=== PATIENT | female | born 1985 | race Caucasian/White ===

== ENCOUNTER 2017-11-28 08:10 | Emergency (ER) | payer OTHER ==
[~2017-11-28] VITALS: Ht 180.3 cm; Wt 66.6 kg
[2017-11-28 08:55] LABS: HEMATOCRIT 36.7 % (36.0-46.0); MCH 33.1 PG (29.0-34.0); MCHC 35.4 G/DL (30.0-36.0); MCV 93.4 FL (83-99); PLATELET COUNT 206 K/uL (156-360); RBC DIS.WIDTH-CV 11.8 % (11.8-14.6); RBC DIS.WIDTH-SD 40.8 % (39-53); RED BLOOD COUNT 3.93 M/uL (3.80-5.20); WHITE BLOOD COUNT 4.9 K/uL (4.1-10.2)
[2017-11-28 09:06] LABS: ALBUMIN 4.3 g/dL (3.2-4.8); CHLORIDE 109 mEq/L (99-109); POTASSIUM 4.1 mEq/L (3.7-5.4)
[2017-11-28 09:07] LABS: AMYLASE 51 IU/L (1-118); SODIUM 141 mEq/L (136-147)
[2017-11-28 09:09] LABS: GLUCOSE 94 mg/dL (70-99); TOTAL PROTEIN 6.7 g/dL (6.4-8.3)
[2017-11-28 09:11] LABS: TOTAL BILIRUBIN 0.3 mg/dL (0.0-1.0)
[2017-11-28 09:12] LABS: ALKALINE PHOSPHATASE 74 IU/L (3-129); CREATININE 0.8 mg/dL (0.6-1.3); GFR ESTIMATE (CALCULATED) > 59 mL/min/
[2017-11-28 09:14] LABS: AST (GOT) 19 IU/L (2-34); UREA NITROGEN (BUN) 14 mg/dL (9-23)
[2017-11-28 09:15] LABS: ALT (GPT) 16 IU/L (3-49)
[2017-11-28 09:16] LABS: LIPASE 23 U/L (1.0-51.0)
[2017-11-28 10:11] LABS: QUANTITATIVE HCG < 4.0 MIU/ML
[2017-11-28 11:38] LABS: APPEARANCE SL.HAZY ((CLEAR)); BILIRUBIN NEGATIVE; BLOOD MODERATE; COLOR YELLOW ((YELLOW)); GLUCOSE (STRIP) NEGATIVE; KETONES NEGATIVE; LEUKOCYTES SMALL; NITRITE NEGATIVE; PROTEIN (STRIP) NEGATIVE; SPECIFIC GRAVITY 1.015 (1.000-1.030); UROBILINOGEN 0.2 MG/DL (0.2-1.0)
[2017-11-28 11:43] LABS: BACTERIA RARE /HPF; EPITHELIAL CELLS 2+ /HPF; MUCUS NONE SEEN /LPF; RED BLOOD CELLS 0-5 /HPF (0-5); UCUL ADDED? YES; WHITE BLOOD CELLS 20-30 /HPF (0-5)
[2017-11-28] MEDS ORDERED: CIPRO250 MG PO (11:48)
[2017-11-28 12:25] VITALS: BP 101/69
== END 2017-11-28 12:26 | disposition home or self-care (01) ==
LOC: EME 08:10
PROVIDERS: Nurse Practitioner Family
DX: N39.0 Urinary tract infection, site not specified (principal); R10.13 Epigastric pain; F17.200 Nicotine dependence, unspecified, uncomplicated
CPT/HCPCS: 74022; 80053; 81003; 82150; 83690; 84702; 85027; 87086; 99281; 99284